=== PATIENT | female | born 1985 | race Caucasian/White ===

== ENCOUNTER 2019-12-11 03:46 | Emergency (ER) | payer BC, SELFPAY ==
[2019-12-11 03:58] VITALS: BP 131/95; PULSE 92; RESP 16; TEMP 36.1; O2SAT 99; BMI 22.8
[2019-12-11] MEDS: sodium chloride 0.9% 1,000 ML 999 ML IV ×2 (04:28→06:19)
[2019-12-11] MEDS: ondansetron 2 mg/ML SDV 2 mL 4 MG IVP (04:28)
[2019-12-11 04:30] VITALS: RESP 18; O2SAT 99
[2019-12-11] MEDS: morphine 4 mg/mL SDV 1 mL IVP (04:30)
[2019-12-11 04:42] LABS: Alanine Aminotransferase 11 U/L (0-33); Albumin Level 4.5 g/dL (3.5-5.2); Alkaline Phosphatase 44 IU/L (35-105); Anion Gap 12.6 (5-19); Aspartate Amino Transferase 17 U/L (0-32); Blood Urea Nitrogen 13 mg/dL (6-20); Calcium 9.4 mg/dL (8.5-10.5); Carbon Dioxide 26 mmol/L (22-29); Chloride 100 mmol/L (98-107); Globulin 1.9 g/dL (1.3-4.6); Glomerular Filtration Rate 81.2 mL/min (90-130); Glucose 87 mg/dL (65-115); Lipase 32 U/L (13-60); Osmolality Calculated 276 mOsm/kg (285-295); Potassium 3.6 mmol/L (3.5-5.1); Sodium 135 mmol/L (136-145); Total Bilirubin 0.3 mg/dL (0.15-1.2); Total Protein 6.4 g/dL (6.6-8.7)
[2019-12-11 04:43] LABS: Bacteria Urine 1+; Bilirubin Urine Neg (NEGATIVE); Blood Urine 3+ (Negative); Glucose Urine UA Norm (Normal); Ketones Urine Negative (Negative); Leukocyte Esterase Urine 2+ (Negative); Nitrate Urine Negative (Negative); Protein Urine 1+ (Negative); RBC Urine >100 /hpf (0-2); Squamous Epithelial Cell Urine 0-4 (0-5); Sulfosalicylic Acid Urine Trace (Negative); Urine Appearance Cloudy (CLEAR); Urine Color Yellow (Yellow); Urobilinogen Urine Norm (Negative); WBC Urine 55-80 /hpf (0-5); pH Urine 8 (5-7)
[2019-12-11 04:44] LABS: Add Urine Culture? Yes
--- NOTE | 2019-12-11 04:46 | CTR_ITS ---
PROCEDURE INFORMATION: Exam: CT Abdomen And Pelvis Without Contrast Exam date and time: 12/11/2019 5:32 AM Age: 34 years old Clinical indication: Abdominal pain; Flank; Lower; Additional info: Flank/abdominal pain TECHNIQUE: Imaging protocol: Computed tomography of the abdomen and pelvis without contrast. Radiation optimization: All CT scans at this facility use at least one of these dose optimization techniques: automated exposure control; mA and/or kV adjustment per patient size (includes targeted exams where dose is matched to clinical indication); or iterative reconstruction. COMPARISON: No relevant prior studies available. RADIATION DOSE METRICS: Total DLP (mGy-cm): 546.99 FINDINGS: Limitations: Examinations performed without intravenous contrast have limited ability to detect many conditions. Lungs: Mild patchy atelectasis at bilateral lung bases. Liver: Unremarkable. Gallbladder and bile ducts: Unremarkable. Pancreas: Unremarkable. Spleen: Unremarkable. Adrenals: Unremarkable. Kidneys and ureters: The kidneys are unremarkable. No renal stones identified. No hydronephrosis on either side. Stomach and bowel: Mild inflammatory change of the fat adjacent to the terminal ileum and cecum (series 2, image 89). Differential diagnosis includes infection and inflammatory bowel disease. Appendix: A normal-appearing appendix is seen in the right lower quadrant. Intraperitoneal space: No free intraperitoneal air identified. No free intraperitoneal fluid identified. Vasculature: No abdominal aortic aneurysm. Lymph nodes: Unremarkable. Bladder: Mild to moderate wall thickening of the bladder, suggesting cystitis. Reproductive: Metallic IUD is noted with intrauterine positioning. Bones/joints: Note is made of bilateral L4 pars interarticularis defects. Soft tissues: Unremarkable. CT/CT kidney stone 69500 IMPRESSION: 1. Mild inflammatory change of the fat adjacent to the terminal ileum and cecum. Differential diagnosis includes infection and inflammatory bowel disease. 2. Mild to moderate wall thickening of the bladder, suggesting cystitis. Radiation Dose CTDIVOL = (mGy): DLP = 546.99 (mGy-cm)
[2019-12-11 04:49] LABS: Basophils # 0.1 10^3/uL (0.0-0.1); Basophils % 0.6 %; Eosinophils # 0.2 10^3/uL (0.0-0.8); Hematocrit 41.3 % (37.0-47.0); Hemoglobin 13.8 g/dL (11.5-15.3); Lymphocytes # 1.5 10^3/uL (0.8-4.8); Mean Corpuscular HGB Conc 33.4 g/dL (30.0-36.0); Mean Corpuscular Hemoglobin 30.2 pg (28.0-34.0); Mean Corpuscular Volume 90.4 fL (81-99); Mean Platelet Volume 11.5 fL (7.4-10.4); Monocytes # 0.7 10^3/uL (0.2-0.9); Monocytes % 6.3 %; Neutrophils % 77.8 %; Nucleated Red Blood Cells % 0 %; Platelet Count 165 10^3/cmm (130-400); Red Blood Count 4.57 10^6/uL (4.1-5.3); Red Cell Distribution Width 12.7 % (12.1-15.1); White Blood Count 11.5 10^3/uL (4.0-10.0)
[2019-12-11] MEDS: cefTRIAXone 1,000 MG in sodium chloride 0.9% (plus) 50 ML 100 MG IV (05:05)
--- NOTE | 2019-12-11 05:11 | W.ED.FEMALGU ---
Documented by User: Edie Benson 12/11/19 18:26 HPI - Female Genitourinary General: Chief complaint: Urogenital-Female Stated complaint: POSS UTI Time Seen by Provider: 12/11/19 03:52 Source: patient Mode of arrival: ambulatory Limitations: no limitations History of Present Illness: HPI Narrative: Herminia is a nice 34-year-old female who comes in complaining of dysuria, urinary frequency and urgency, back pain and nausea. She is vomited several times. She denies any fever. She states her symptoms started approximately 1 AM. She felt fine when she went to sleep but otherwise denies any complaints or concerns. Associated symptoms: Reports abdominal pain and nausea; Deny headache(s) or syncope Date of Last Menstrual Period: 12/11/19 Review of Systems Const: Denies: fever(s), chills, body aches, fatigue, malaise or diaphoresis Eyes: Denies: change in vision, blurry vision, blind spots or photophobia ENMT: Denies: throat pain, odynophagia, hoarseness, swelling of lips/tongue, ear or mastoid pain, ear discharge, change in hearing or nasal discharge Card: Denies: chest pain, palpitations, irregular heart rhythm, edema, lightheadedness, syncope, pre-syncope, dyspnea on exertion or orthopnea Resp: Denies: dyspnea, productive cough, non-productive cough, wheezing, hemoptysis or chest congestion GI: Reports: abdominal pain, nausea and vomiting; Denies: hematemesis, coffee ground emesis, heartburn, diarrhea, constipation, GI cramping, hematochezia or melena : Denies: flank pain, dysuria, urinary frequency, urinary urgency or hematuria Musc: Denies: neck pain, back pain, extremity pain, extremity swelling, joint pain, joint swelling, joint redness, joint warmth or joint stiffness Skin/Breast: Denies: rash, pruritus, erythema, skin tenderness or jaundice Neuro: Denies: headache(s), numbness in extremities, weakness in extremities, sensory changes, lack of coordination, difficulty walking, dizziness, vertigo, confusion or Slurred speech present Danis/Lymph: Denies: easy bruising, easy bleeding, petechiae, purpura or enlarged lymph nodes All/Imm: Denies: urticaria, throat swelling, tongue swelling, facial swelling or acute wheezing PFS ED PFSH: Medical History No pertinent past medical history Surgical History No history of previous surgery Social History Smoking and tobacco status: current every day smoker Female Reproductive History: Date of last menstrual period: 12/11/19 Physical Exam Const: COMMON NORMALS: no acute distress, patient oriented x3, no limitations, healthy appearing and well nourished GENERAL APPEARANCE: cooperative, well kempt and well developed HENMT: COMMON NORMALS: normocephalic, atraumatic, external ears normal, EAC's normal and Normal external nose present HEAD & SCALP: normal to inspection, normocephalic and atraumatic FACE & SINUS: normal facial exam and face symmetric NOSE: Normal external nose present and Normal nares present EXTERNAL EAR: Yes external ears normal EXTERNAL AUDITORY CANAL: EAC's normal MOUTH: Normal oral and palatal mucosa present, lip normal and tongue normal Eye: COMMON NORMALS: Equal, round and reactive pupils present and conjunctivae normal GENERAL EYE: appearance normal, both eyes and all related structures ALIGNMENT: Yes alignment normal PERIORBITAL: periorbital findings normal EYELID: eyelids normal CONJUNCTIVA: Yes conjunctivae normal SCLERA: sclerae normal PUPIL: Yes Equal, round and reactive pupils present Neck/C-Spine: COMMON NORMALS: full ROM, no lymphadenopathy, supple, no meningeal signs and no JVD GENERAL: Yes normal visual inspection and Yes trachea midline Chest: COMMONS NORMALS: normal inspection of the chest and normal palpation of entire chest wall Resp: COMMON NORMALS: normal respiratory effort, No retractions and No use of accessory muscles EFFORT & INSPECTION: Yes able to speak in complete sentences and Yes symmetric chest movement AUSCULTATION: no crackles, no rales, no rhonchi and no wheezes Cardio: COMMON NORMALS: no JVD, regular rate, regular rhythm, S1 normal heart sound present and S2 normal heart sound present RATE: regular rate RHYTHM: regular rhythm HEART SOUNDS: S1 normal heart sound present, S2 normal heart sound present, no click, no gallops, no murmurs, no rubs and abnormal split S2 GI: COMMON NORMALS: Soft to palpation and No hepatosplenomegaly present PALPATION: Yes Soft to palpation, No Tenderness to palpation present (GI), No Guarding due to palpation present (GI), No Rigid due to palpation, Yes No hepatosplenomegaly present, No Hernia present, No Palpable mass present and No Pulsatile mass present : COMMON NORMALS: Yes no CVA tenderness BLADDER/KIDNEY EXAM: Yes no CVA tenderness EXTERNAL FEMALE EXAM: No Hernia present Back/Pelvis: COMMON NORMALS: no CVA tenderness, thoracic and lumbar spine normal to inspection, no thoracic nor lumbar tenderness and thoraco-lumbar ROM normal Extremity: COMMON NORMALS: normal to inspection, full ROM, capillary refill normal, no joint enlargement, no clubbing, cyanosis or edema and no calf tenderness Neuro: COMMON NORMALS: patient oriented x3, CN's II-XII intact bilaterally, moves all extremities, no focal motor deficits and no sensory deficits noted MENINGEAL SIGNS: Yes no meningeal signs SPEECH: speech normal Psych: COMMON NORMALS: mental status grossly normal, Normal thought process present, cooperative, normal affect, speech normal and activity/motor behavior normal APPEARANCE: Yes well kempt SPEECH: Yes normal speech THOUGHT PROCESS: Normal thought process present Skin: COMMON NORMALS: no rashes or lesions noted, turgor normal, no jaundice, no petechiae and no mottling GENERAL SKIN EXAM: no rashes or lesions noted and turgor normal Course Vital Signs: Vital signs: Vital Signs Temperature 97.0 F L 12/11/19 03:58 Pulse Rate 95 12/11/19 07:52 Respiratory Rate 16 12/11/19 07:52 Blood Pressure 100/67 12/11/19 07:52 Pulse Oximetry 97 12/11/19 07:52 MDM - Female MDM Narrative: Medical decision making narrative: 599 -Case turned over to Dr. Baer at change of shift. Lab Data: Labs: Lab Results 12/11/19 12/11/19 12/11/19 Range/Units 04:10 04:10 04:24 WBC 11.5 H (4.0-10.0) 10^3/ uL RBC 4.57 (4.1-5.3) 10^6/u L Hgb 13.8 (11.5-15.3) g/dL Hct 41.3 (37.0-47.0) % MCV 90.4 (81-99) fL MCH 30.2 (28.0-34.0) pg MCHC 33.4 (30.0-36.0) g/dL RDW 12.7 (12.1-15.1) % Plt Count 165 (130-400) 10^3/c mm MPV 11.5 H (7.4-10.4) fL Neut % (Auto) 77.8 % Lymph % (Auto) 13.0 % [place] % (Auto) 6.3 % Eos % (Auto) 2.0 % Baso % (Auto) 0.6 % Neut # (Auto) 9.0 H (1.8-7.7) 10^3/u L Lymph # (Auto) 1.5 (0.8-4.8) 10^3/u L [place] # (Auto) 0.7 (0.2-0.9) 10^3/u L Eos # (Auto) 0.2 (0.0-0.8) 10^3/u L Baso # (Auto) 0.1 (0.0-0.1) 10^3/u L Nucleated RBC % (a uto) 0 % Nucleated RBCs # 0.0 /100WBC Sodium (136-145) mmol/L Potassium (3.5-5.1) mmol/L Chloride (98-107) mmol/L Carbon Dioxide (22-29) mmol/L Anion Gap (5-19) BUN (6-20) mg/dL Creatinine (0.5-0.9) mg/dL GFR Calculation (90-130) mL/min Glucose (65-115) mg/dL Calculated Osmolal ity (285-295) mOsm/k g Calcium (8.5-10.5) mg/dL Total Bilirubin (0.15-1.2) mg/dL AST (0-32) U/L ALT (0-33) U/L Alkaline Phosphata se (35-105) IU/L Total Protein (6.6-8.7) g/dL Albumin (3.5-5.2) g/dL Globulin (1.3-4.6) g/dL Lipase (13-60) U/L HCG, Qual Negative (Negative) Urine Color Yellow (Yellow) Urine Appearance Cloudy (CLEAR) Urine pH 8 H (5-7) Ur Specific Gravit y 1.010 (1.005-1.030) Urine Protein 1+ H (Negative) Urine Glucose (UA) Norm (Normal) Urine Ketones Negative (Negative) Urine Blood 3+ H (Negative) Urine Nitrate Negative (Negative) Urine Bilirubin Neg (NEGATIVE) Prot Sulfosalicyli c Acd Trace (Negative) Urine Urobilinogen Norm (Negative) mg/dL Ur Leukocyte Pia ase 2+ H (Negative) Urine RBC >100 H (0-2) /hpf Urine WBC 55-80 H (0-5) /hpf Ur Squamous Epith Cells 0-4 H (0-5) Urine Bacteria 1+ H (NONE) 12/11/19 Range/Units 04:24 WBC (4.0-10.0) 10^3/ uL RBC (4.1-5.3) 10^6/u L Hgb (11.5-15.3) g/dL Hct (37.0-47.0) % MCV (81-99) fL MCH (28.0-34.0) pg MCHC (30.0-36.0) g/dL RDW (12.1-15.1) % Plt Count (130-400) 10^3/c mm MPV (7.4-10.4) fL Neut % (Auto) % Lymph % (Auto) % [place] % (Auto) % Eos % (Auto) % Baso % (Auto) % Neut # (Auto) (1.8-7.7) 10^3/u L Lymph # (Auto) (0.8-4.8) 10^3/u L [place] # (Auto) (0.2-0.9) 10^3/u L Eos # (Auto) (0.0-0.8) 10^3/u L Baso # (Auto) (0.0-0.1) 10^3/u L Nucleated RBC % (a uto) % Nucleated RBCs # /100WBC Sodium 135 L (136-145) mmol/L Potassium 3.6 (3.5-5.1) mmol/L Chloride 100 (98-107) mmol/L Carbon Dioxide 26 (22-29) mmol/L Anion Gap 12.6 (5-19) BUN 13 (6-20) mg/dL Creatinine 0.8 (0.5-0.9) mg/dL GFR Calculation 81.2 L (90-130) mL/min Glucose 87 (65-115) mg/dL Calculated Osmolal ity 276 L (285-295) mOsm/k g Calcium 9.4 (8.5-10.5) mg/dL Total Bilirubin 0.3 (0.15-1.2) mg/dL AST 17 (0-32) U/L ALT 11 (0-33) U/L Alkaline Phosphata se 44 (35-105) IU/L Total Protein 6.4 L (6.6-8.7) g/dL Albumin 4.5 (3.5-5.2) g/dL Globulin 1.9 (1.3-4.6) g/dL Lipase 32 (13-60) U/L HCG, Qual (Negative) Urine Color (Yellow) Urine Appearance (CLEAR) Urine pH (5-7) Ur Specific Gravit y (1.005-1.030) Urine Protein (Negative) Urine Glucose (UA) (Normal) Urine Ketones (Negative) Urine Blood (Negative) Urine Nitrate (Negative) Urine Bilirubin (NEGATIVE) Prot Sulfosalicyli c Acd (Negative) Urine Urobilinogen (Negative) mg/dL Ur Leukocyte Pia ase (Negative) Urine RBC (0-2) /hpf Urine WBC (0-5) /hpf Ur Squamous Epith Cells (0-5) Urine Bacteria (NONE) Discharge Plan Discharge Patient Disposition: Home, Self-Care Clinical Impression: Colitis presumed infectious, Acute hemorrhagic cystitis Condition: Stable Prescriptions: New hydrocodone-acetaminophen 5-325 mg tablet 1 tab PO Q6H PRN (Reason: pain) Qty: 20 RF: 0 ciprofloxacin HCl 500 mg tablet 500 mg PO BID Qty: 20 RF: 0 metronidazole 500 mg tablet 500 mg PO Q8H 10 Days Qty: 30 RF: 0 Discharge Orders: Discharge Order (Routine); Ordered 12/11/19 Ordered By: David Baer Activity Restrictions/Additional Instructions: Case management will call with arrangements for a follow-up with a primary care physician. Discharge Date/Time: 12/11/19 07:52 Sign Out Sign Out Data: Patient Sign Out occurred on 12/11/19 at 06:42. Patient's care was discussed, and care was transferred from Edie Benson to David Baer DO. Sign Out Comment: Case turned over to Dr. Baer at change of shift. Last updated by Edie Benson at 12/11/19 06:24 Coding Level of Care Code ED Robot Technician for Chg Fwd Exam Comprehensive Documented by User: David Baer DO 12/14/19 15:26 HPI - Female Genitourinary General: Chief complaint: Urogenital-Female Stated complaint: POSS UTI Time Seen by Provider: 12/11/19 03:52 PFSH ED PFSH: Medical History No pertinent past medical history Surgical History No history of previous surgery Social History Smoking and tobacco status: current every day smoker Course Vital Signs: Vital signs: Vital Signs Temperature 97.0 F L 12/11/19 03:58 Pulse Rate 95 12/11/19 07:52 Respiratory Rate 16 12/11/19 07:52 Blood Pressure 100/67 12/11/19 07:52 Pulse Oximetry 97 12/11/19 07:52 MDM - Female MDM Narrative: Medical decision making narrative: Patient has infectious colitis and hemorrhagic cystitis reviewed findings with the patient discharged home on antibiotics have her follow-up with her primary care doctor return if has worsening symptoms Lab Data: Labs: Lab Results 12/11/19 12/11/19 12/11/19 Range/Units 04:10 04:10 04:24 WBC 11.5 H (4.0-10.0) 10^3/ uL RBC 4.57 (4.1-5.3) 10^6/u L Hgb 13.8 (11.5-15.3) g/dL Hct 41.3 (37.0-47.0) % MCV 90.4 (81-99) fL MCH 30.2 (28.0-34.0) pg MCHC 33.4 (30.0-36.0) g/dL RDW 12.7 (12.1-15.1) % Plt Count 165 (130-400) 10^3/c mm MPV 11.5 H (7.4-10.4) fL Neut % (Auto) 77.8 % Lymph % (Auto) 13.0 % [place] % (Auto) 6.3 % Eos % (Auto) 2.0 % Baso % (Auto) 0.6 % Neut # (Auto) 9.0 H (1.8-7.7) 10^3/u L Lymph # (Auto) 1.5 (0.8-4.8) 10^3/u L [place] # (Auto) 0.7 (0.2-0.9) 10^3/u L Eos # (Auto) 0.2 (0.0-0.8) 10^3/u L Baso # (Auto) 0.1 (0.0-0.1) 10^3/u L Nucleated RBC % (a uto) 0 % Nucleated RBCs # 0.0 /100WBC Sodium (136-145) mmol/L Potassium (3.5-5.1) mmol/L Chloride (98-107) mmol/L Carbon Dioxide (22-29) mmol/L Anion Gap (5-19) BUN (6-20) mg/dL Creatinine (0.5-0.9) mg/dL GFR Calculation (90-130) mL/min Glucose (65-115) mg/dL Calculated Osmolal ity (285-295) mOsm/k g Calcium (8.5-10.5) mg/dL Total Bilirubin (0.15-1.2) mg/dL AST (0-32) U/L ALT (0-33) U/L Alkaline Phosphata se (35-105) IU/L Total Protein (6.6-8.7) g/dL Albumin (3.5-5.2) g/dL Globulin (1.3-4.6) g/dL Lipase (13-60) U/L HCG, Qual Negative (Negative) Urine Color Yellow (Yellow) Urine Appearance Cloudy (CLEAR) Urine pH 8 H (5-7) Ur Specific Gravit y 1.010 (1.005-1.030) Urine Protein 1+ H (Negative) Urine Glucose (UA) Norm (Normal) Urine Ketones Negative (Negative) Urine Blood 3+ H (Negative) Urine Nitrate Negative (Negative) Urine Bilirubin Neg (NEGATIVE) Prot Sulfosalicyli c Acd Trace (Negative) Urine Urobilinogen Norm (Negative) mg/dL Ur Leukocyte Pia ase 2+ H (Negative) Urine RBC >100 H (0-2) /hpf Urine WBC 55-80 H (0-5) /hpf Ur Squamous Epith Cells 0-4 H (0-5) Urine Bacteria 1+ H (NONE) 12/11/19 Range/Units 04:24 WBC (4.0-10.0) 10^3/ uL RBC (4.1-5.3) 10^6/u L Hgb (11.5-15.3) g/dL Hct (37.0-47.0) % MCV (81-99) fL MCH (28.0-34.0) pg MCHC (30.0-36.0) g/dL RDW (12.1-15.1) % Plt Count (130-400) 10^3/c mm MPV (7.4-10.4) fL Neut % (Auto) % Lymph % (Auto) % [place] % (Auto) % Eos % (Auto) % Baso % (Auto) % Neut # (Auto) (1.8-7.7) 10^3/u L Lymph # (Auto) (0.8-4.8) 10^3/u L [place] # (Auto) (0.2-0.9) 10^3/u L Eos # (Auto) (0.0-0.8) 10^3/u L Baso # (Auto) (0.0-0.1) 10^3/u L Nucleated RBC % (a uto) % Nucleated RBCs # /100WBC Sodium 135 L (136-145) mmol/L Potassium 3.6 (3.5-5.1) mmol/L Chloride 100 (98-107) mmol/L Carbon Dioxide 26 (22-29) mmol/L Anion Gap 12.6 (5-19) BUN 13 (6-20) mg/dL Creatinine 0.8 (0.5-0.9) mg/dL GFR Calculation 81.2 L (90-130) mL/min Glucose 87 (65-115) mg/dL Calculated Osmolal ity 276 L (285-295) mOsm/k g Calcium 9.4 (8.5-10.5) mg/dL Total Bilirubin 0.3 (0.15-1.2) mg/dL AST 17 (0-32) U/L ALT 11 (0-33) U/L Alkaline Phosphata se 44 (35-105) IU/L Total Protein 6.4 L (6.6-8.7) g/dL Albumin 4.5 (3.5-5.2) g/dL Globulin 1.9 (1.3-4.6) g/dL Lipase 32 (13-60) U/L HCG, Qual (Negative) Urine Color (Yellow) Urine Appearance (CLEAR) Urine pH (5-7) Ur Specific Gravit y (1.005-1.030) Urine Protein (Negative) Urine Glucose (UA) (Normal) Urine Ketones (Negative) Urine Blood (Negative) Urine Nitrate (Negative) Urine Bilirubin (NEGATIVE) Prot Sulfosalicyli c Acd (Negative) Urine Urobilinogen (Negative) mg/dL Ur Leukocyte Pia ase (Negative) Urine RBC (0-2) /hpf Urine WBC (0-5) /hpf Ur Squamous Epith Cells (0-5) Urine Bacteria (NONE) Discharge Plan Discharge Patient Disposition: Home, Self-Care Clinical Impression: Colitis presumed infectious, Acute hemorrhagic cystitis Condition: Stable Prescriptions: New hydrocodone-acetaminophen 5-325 mg tablet 1 tab PO Q6H PRN (Reason: pain) Qty: 20 RF: 0 ciprofloxacin HCl 500 mg tablet 500 mg PO BID Qty: 20 RF: 0 metronidazole 500 mg tablet 500 mg PO Q8H 10 Days Qty: 30 RF: 0 Discharge Orders: Discharge Order (Routine); Ordered 12/11/19 Ordered By: David Baer Activity Restrictions/Additional Instructions: Case management will call with arrangements for a follow-up with a primary care physician. Discharge Date/Time: 12/11/19 07:52 Sign Out Sign Out Data: Patient Sign Out occurred on 12/11/19 at 06:42. Patient's care was discussed, and care was transferred from Edie Benson to David L Horstman, DO. Sign Out Comment: Case turned over to Dr. Baer at change of shift. Last updated by Edie Benson at 12/11/19 06:24 Coding Level of Care Code ED Robot Technician for Chg Fwd Exam Comprehensive
[2019-12-11 06:20] VITALS: BP 109/84; PULSE 82; RESP 18; O2SAT 98
--- NOTE | 2019-12-11 07:00 | PC.NURSE ---
Report received from QUAN Zuniga.
[2019-12-11 07:24] VITALS: BP 90/57; PULSE 83; RESP 16; O2SAT 99
[2019-12-11 07:52] VITALS: BP 100/67; PULSE 95; RESP 16; O2SAT 97
[2019-12-11 12:45] LABS: HCG Qualitative Urine. Negative (Negative)
--- NOTE | 2019-12-11 13:42 | DCPLANNER ---
microbiology laboratory manager had message to speak with patient about getting established with a primary care physician. microbiology laboratory manager called patient, unable to speak with patient at this time, a voicemail was left for patient to return family preservation caseworker phone call.
== END 2019-12-11 07:52 | disposition home or self-care (01) ==
PROVIDERS: Emergency Medicine; Emergency Provider Family Medicine
DX: A09 Infectious gastroenteritis and colitis, unspecified (principal); N30.01 Acute cystitis with hematuria; F17.210 Nicotine dependence, cigarettes, uncomplicated
CPT/HCPCS: 12345; 36415; 74176; 80053; 81001; 81025; 83690; 85025; 87086; 96360; 96361; 96365; 96366; 96375; 99284; J0696; J2270; J2405; J7030

== ENCOUNTER 2020-10-14 12:27 | Emergency (ER) | payer BC, SELFPAY ==
[2020-10-14] VITALS (8 sets, daily range): BP systolic 100–124; BP diastolic 66–84; PULSE 65–91; RESP 12–24; TEMP 36.6; O2SAT 96–100; BMI 23.8
--- NOTE | 2020-10-14 14:06 | XR_ITS ---
WS: [id number] Portable AP upright chest, 10/14/2020 Clinical Data: cp Comparison: Portable chest, 07/26/2018. Findings: No nodules, masses or effusions are seen. The heart is normal. The pulmonary vascularity is not increased. No pneumonia or pneumothorax is seen. XR/XR chest 1V portable [id number] Impression: Negative chest.
--- NOTE | 2020-10-14 14:06 | ECG_ITS ---
[facility] Test Date: 2020-10-14 Pat Name: Herminia Keating Department: Room: Gender: Female Billing And Accounting Staff Assistant: : 1985 Requested By: Andrews Au Order Number: [id number] Reading MD: KEIRY PADILLA Measurements Intervals [place] Rate: 69 P: 67 MN: 166 QRS: 28 QRSD: 85 T: 43 QT: 406 QTc: 436 Interpretive Statements SINUS RHYTHM Compared to ECG 07/26/2018 12:32:04 No significant changes Electronically Signed On 10-14-2020 19:22:37 CDT by KEIRY PADILLA [id number]
[2020-10-14] MEDS: albuterol 8 gm MDI 1 PUFF INHALATION (14:40)
[2020-10-14] MEDS: sodium chloride 0.9% 1,000 ML 999 ML IV (14:47)
[2020-10-14] MEDS: diphenhydrAMINE 50 mg/mL SDV 1mL IVP (14:48)
[2020-10-14 15:28] LABS: Alanine Aminotransferase 12 U/L (0-33); Albumin Level 4.6 g/dL (3.5-5.2); Alkaline Phosphatase 41 IU/L (35-105); Anion Gap 15.6 (5-19); Aspartate Amino Transferase 15 U/L (0-32); Blood Urea Nitrogen 9 mg/dL (6-20); Calcium 8.7 mg/dL (8.5-10.5); Carbon Dioxide 23 mmol/L (22-29); Chloride 104 mmol/L (98-107); Globulin 2.3 g/dL (1.3-4.6); Glomerular Filtration Rate 94.2 mL/min (90-130); Glucose 68 mg/dL (65-115); Osmolality Calculated 285 mOsm/kg (285-295); Potassium 3.6 mmol/L (3.5-5.1); Sodium 139 mmol/L (136-145); Total Bilirubin 0.4 mg/dL (0.15-1.2); Total Protein 6.9 g/dL (6.6-8.7)
[2020-10-14 15:29] LABS: Troponin(5th) Baseline 10 ng/L (0-10)
[2020-10-14 15:48] LABS: Basophils # 0.1 10^3/uL (0.0-0.1); Eosinophils # 0.2 10^3/uL (0.0-0.8); Eosinophils % 2.9 %; Hematocrit 44.1 % (37.0-47.0); Lymphocytes # 1.9 10^3/uL (0.8-4.8); Lymphocytes % 30.9 %; Mean Corpuscular Hemoglobin 31.8 pg (28.0-34.0); Mean Corpuscular Volume 93.6 fL (81-99); Mean Platelet Volume 11.9 fL (7.4-10.4); Monocytes # 0.4 10^3/uL (0.2-0.9); Monocytes % 6.4 %; Neutrophils # 3.67 10^3/uL (1.8-7.7); Neutrophils % 58.5 %; Nucleated Red Blood Cells % 0 %; Platelet Count 172 10^3/cmm (130-400); Red Blood Count 4.71 10^6/uL (4.1-5.3); Red Cell Distribution Width 11.9 % (12.1-15.1); White Blood Count 6.3 10^3/uL (4.0-10.0)
--- NOTE | 2020-10-14 16:06 | ECG_ITS ---
[facility] Test Date: 2020-10-14 Pat Name: Herminia Keating Department: Room: Gender: Female Nurse Reviewer: : 1985 Requested By: Andrews Au Order Number: [id number] Tate MD: KEIRY PADILLA Measurements Intervals [place] Rate: 65 P: 71 WI: 175 QRS: 66 QRSD: 83 T: 60 QT: 428 QTc: 445 Interpretive Statements SINUS RHYTHM Compared to ECG 10/14/2020 12:45:46 No significant changes Electronically Signed On 10-14-2020 19:23:52 CDT by KEIRY PADILLA [id number]
--- NOTE | 2020-10-14 17:43 | ED_ITS ---
HPI - Chest Pain General: Chief Complaint: Chest Pain Stated Complaint: chest discomfort since yesterday Time Seen by Provider: 10/14/20 14:02 History of Present Illness: HPI narrative: The patient is a 35-year-old female who comes to the ER complaining of a tightness in her chest. She says she has seasonal allergies and she has been taking Claritin to help her with this. Several years ago she had an episode where her throat swelled up and she could not breathe and said it started like this. She has no identified allergies other than seasonal allergies and sulfa drugs. Also complains of mild shortness of breath associated with the tightness in her chest. No cardiac history. Previously healthy 35-year-old female Timing of current episode: constant Prior episodes: Yes Onset: during rest and during exertion Pain location: substernal Pain radiation: none Severity: mild Quality: tightness Associated symptoms: Reports no associated symptoms and dyspnea; Deny abdominal pain or palpitations Review of Systems General: Reports: 10 or more systems reviewed and unremarkable except in HPI and below Const: Denies: fatigue Eyes: Denies: change in vision, blurry vision or eye redness ENMT: Denies: throat pain, swelling of lips/tongue, ear or mastoid pain or nasal congestion Card: Reports: other (Chest tightness); Denies: palpitations, irregular heart rhythm, edema, dyspnea on exertion or orthopnea Resp: Reports: dyspnea; Denies: productive cough or non-productive cough GI: Denies: abdominal pain, diarrhea or GI cramping : Denies: flank pain, difficulty voiding, urinary frequency or urinary urgency Musc: Denies: neck pain, back pain, extremity pain, joint pain, joint redness, limited range of motion or muscle weakness Skin/Breast: Denies: rash, pruritus, erythema, skin pain or skin tenderness Neuro: Denies: headache(s), numbness in extremities, weakness in extremities, sensory changes, difficulty walking, dizziness, confusion or Slurred speech present Psych: Denies: anxiety or depression Endo: Denies: polyuria All/Imm: Denies: urticaria, throat swelling or tongue swelling PFS ED PFSH: Medical History (Updated 10/14/20 @ 17:43 by Andrews Au MD) No pertinent past medical history Surgical History No history of previous surgery Social History (Updated 12/16/19 @ 11:54 by Lola Dalal LPN) Smoking and tobacco status: former smoker Female Reproductive History: Date of last menstrual period: 12/11/19 Physical Exam Const: COMMON NORMALS: no acute distress, average body habitus, patient oriented x3, no limitations, healthy appearing, alert and well nourished GENERAL APPEARANCE: cooperative, comfortable, well kempt and well developed ORIENTATION/CONSCIOUSNESS: Yes awake, Yes oriented to person, Yes oriented to place and Yes oriented to time HENMT: COMMON NORMALS: normocephalic, external ears normal and Normal external nose present HEAD & SCALP: normal to inspection and normocephalic NOSE: Normal external nose present EXTERNAL EAR: Yes external ears normal MOUTH: Normal oral and palatal mucosa present THROAT: posterior oropharynx normal Eye: COMMON NORMALS: Equal, round and reactive pupils present and EOMs intact bilaterally GENERAL EYE: appearance normal, both eyes and all related structures PUPIL: Yes Equal, round and reactive pupils present Neck/C-Spine: COMMON NORMALS: full ROM, no lymphadenopathy, no meningeal signs and no JVD GENERAL: Yes normal visual inspection Lymph: LYMPHATIC: no lymphadenopathy noted Chest: COMMONS NORMALS: normal inspection of the chest and normal palpation of entire chest wall Resp: COMMON NORMALS: normal respiratory effort, No retractions, No use of accessory muscles, clear to auscultation bilaterally and percussion normal EFFORT & INSPECTION: Yes able to speak in complete sentences AUSCULTATION: clear to auscultation bilaterally PERCUSSION: percussion normal Cardio: COMMON NORMALS: no JVD, regular rate, regular rhythm, S1 normal heart sound present, S2 normal heart sound present and Peripheral pulses 2+ throughout RATE: regular rate RHYTHM: regular rhythm HEART SOUNDS: S1 normal heart sound present and S2 normal heart sound present PERIPHERAL PULSES: Peripheral pulses 2+ throughout GI: COMMON NORMALS: Normal to inspection, nondistended, normoactive bowel sounds present, Soft to palpation, non-tender and no masses INSPECTION: Yes normal to inspection PALPATION: Yes Soft to palpation : COMMON NORMALS: Yes no CVA tenderness BLADDER/KIDNEY EXAM: Yes no CVA tenderness Back/Pelvis: COMMON NORMALS: no CVA tenderness, thoracic and lumbar spine normal to inspection, no thoracic nor lumbar tenderness and thoraco-lumbar ROM normal Extremity: COMMON NORMALS: normal to inspection, full ROM, capillary refill normal, no joint enlargement and no pedal edema GENERAL: Yes normal exam except as noted Neuro: COMMON NORMALS: patient oriented x3, CN's II-XII intact bilaterally, moves all extremities, no focal motor deficits, no sensory deficits noted and gait normal SENSORIUM/ORIENTATION: Yes alert, Yes oriented to person, Yes oriented to place and Yes oriented to time MENINGEAL SIGNS: Yes no meningeal signs Psych: COMMON NORMALS: mental status grossly normal, Normal thought process present, cooperative, normal affect and speech normal APPEARANCE: Yes well kempt ATTITUDE: Yes calm SPEECH: Yes normal speech THOUGHT PROCESS: Normal thought process present Skin: COMMON NORMALS: no rashes or lesions noted GENERAL SKIN EXAM: no rashes or lesions noted Course Vital Signs: Vital signs: Vital Signs Temperature 97.9 F 10/14/20 12:47 Pulse Rate 68 10/14/20 17:11 Respiratory Rate 12 10/14/20 17:11 Blood Pressure 100/71 10/14/20 17:11 Pulse Oximetry 99 10/14/20 17:11 MDM - Chest Pain MDM Narrative: Medical decision making narrative: Patient came to the ER with chest tightness. She has seasonal allergies and has had an episode several years ago that started like this then progressed to throat closing off and not being able to breathe related to an allergic reaction. She was given Benadryl, Solu-Medrol, albuterol with moderate improvement of her symptoms. She says she still had mild symptoms and prefers discharge. I offered her a CT angiogram to check for blood clots in her lungs and she declined saying she has to go pepper picker her kids from daycare. I offered her to return at any time to the ER for further evaluation or if her symptoms worsen. She understands and will do so. Recommended follow-up with primary care in a couple days to monitor improvement of her symptoms and ER with worsening symptoms. Lab Data: Labs: Lab Results 10/14/20 10/14/20 10/14/20 Range/Units 14:50 14:50 14:50 WBC 6.3 (4.0-10.0) 10^3/ uL RBC 4.71 (4.1-5.3) 10^6/u L Hgb 15.0 (11.5-15.3) g/dL Hct 44.1 (37.0-47.0) % MCV 93.6 (81-99) fL MCH 31.8 (28.0-34.0) pg MCHC 34.0 (30.0-36.0) g/dL RDW 11.9 L (12.1-15.1) % Plt Count 172 (130-400) 10^3/c mm MPV 11.9 H (7.4-10.4) fL Neut % (Auto) 58.5 % Lymph % (Auto) 30.9 % Todd % (Auto) 6.4 % Eos % (Auto) 2.9 % Baso % (Auto) 1.0 % Neut # (Auto) 3.67 (1.8-7.7) 10^3/u L Lymph # (Auto) 1.9 (0.8-4.8) 10^3/u L Todd # (Auto) 0.4 (0.2-0.9) 10^3/u L Eos # (Auto) 0.2 (0.0-0.8) 10^3/u L Baso # (Auto) 0.1 (0.0-0.1) 10^3/u L Nucleated RBC % (a uto) 0 % Nucleated RBCs # 0.0 /100WBC Sodium 139 (136-145) mmol/L Potassium 3.6 (3.5-5.1) mmol/L Chloride 104 (98-107) mmol/L Carbon Dioxide 23 (22-29) mmol/L Anion Gap 15.6 (5-19) BUN 9 (6-20) mg/dL Creatinine 0.7 (0.5-0.9) mg/dL GFR Calculation 94.2 (90-130) mL/min Glucose 68 (65-115) mg/dL Calculated Osmolal ity 285 (285-295) mOsm/k g Calcium 8.7 (8.5-10.5) mg/dL Total Bilirubin 0.4 (0.15-1.2) mg/dL AST 15 (0-32) U/L ALT 12 (0-33) U/L Alkaline Phosphata se 41 (35-105) IU/L Troponin T Baselin e 10 (0-10) ng/L Troponin T 120 [place] (0-10) ng/L Delta Troponin T (0-10) ABS# Total Protein 6.9 (6.6-8.7) g/dL Albumin 4.6 (3.5-5.2) g/dL Globulin 2.3 (1.3-4.6) g/dL 10/14/20 Range/Units 17:08 WBC (4.0-10.0) 10^3/ uL RBC (4.1-5.3) 10^6/u L Hgb (11.5-15.3) g/dL Hct (37.0-47.0) % MCV (81-99) fL MCH (28.0-34.0) pg MCHC (30.0-36.0) g/dL RDW (12.1-15.1) % Plt Count (130-400) 10^3/c mm MPV (7.4-10.4) fL Neut % (Auto) % Lymph % (Auto) % Todd % (Auto) % Eos % (Auto) % Baso % (Auto) % Neut # (Auto) (1.8-7.7) 10^3/u L Lymph # (Auto) (0.8-4.8) 10^3/u L Todd # (Auto) (0.2-0.9) 10^3/u L Eos # (Auto) (0.0-0.8) 10^3/u L Baso # (Auto) (0.0-0.1) 10^3/u L Nucleated RBC % (a uto) % Nucleated RBCs # /100WBC Sodium (136-145) mmol/L Potassium (3.5-5.1) mmol/L Chloride (98-107) mmol/L Carbon Dioxide (22-29) mmol/L Anion Gap (5-19) BUN (6-20) mg/dL Creatinine (0.5-0.9) mg/dL GFR Calculation (90-130) mL/min Glucose (65-115) mg/dL Calculated Osmolal ity (285-295) mOsm/k g Calcium (8.5-10.5) mg/dL Total Bilirubin (0.15-1.2) mg/dL AST (0-32) U/L ALT (0-33) U/L Alkaline Phosphata se (35-105) IU/L Troponin T Baselin e (0-10) ng/L Troponin T 120 [place] 10.50 H (0-10) ng/L Delta Troponin T 0.50 (0-10) ABS# Total Protein (6.6-8.7) g/dL Albumin (3.5-5.2) g/dL Globulin (1.3-4.6) g/dL Discharge Plan Discharge Patient Disposition: Home Clinical Impression: Allergic reaction Condition: Stable Prescriptions: New EpiPen 2-Bimal 0.3 mg/0.3 mL auto-injector 0.3 mg IM Q10M PRN (Reason: hypersensitivity reaction) Qty: 2 RF: 0 Benadryl 25 mg capsule 25 mg PO Q4H PRN (Reason: allergic reaction) Qty: 30 RF: 0 albuterol sulfate 90 mcg/actuation HFA aerosol inhaler 2 inh inhalation Q6H PRN (Reason: shortness of breath or wheezing) Qty: 8.5 RF: 0 Medrol (Bimal) 4 mg tablets,dose pack See Rx Instructions .ROUTE .COMPLEX Qty: 21 RF: 0 No Action Mirena 20 mcg/24 hours (6 yrs) 52 mg Intrauterine Device See Rx Instructions .ROUTE .COMPLEX RF: 0 Zyrtec 10 mg Tablet 10 mg PO PRN RF: 0 Discharge Orders: Discharge ED (Routine); Ordered 10/14/20 Ordered By: Andrews Au Discharge Diet: Advance as tolerated Discharge Activity: Resume usual activity Patient Instructions: Allergic Reaction, Opioid Safety Activity Restrictions/Additional Instructions: You are likely having an allergic reaction. We have given you Benadryl, steroids, albuterol and you have improved moderately. Please fill the prescriptions and take as directed. Return to the ER at anytime with worsening symptoms. Follow-up with a primary care physician in 2 to 3 days to monitor improvement of your symptoms. Coding Level of Care Code ED Diesel Truck Mechanic for Barbara Lay
[2020-10-14 17:46] LABS: D Dimer <= 0.27 ug/mIFEU (0-0.59)
== END 2020-10-14 18:05 | disposition home or self-care (01) ==
PROVIDERS: Emergency Provider Family Medicine
DX: T78.40XA Allergy, unspecified, initial encounter (principal); Z87.891 Personal history of nicotine dependence
CPT/HCPCS: 36415; 71045; 80053; 84484; 85025; 85378; 93005; 94640; 96361; 96374; 96375; 99284; J1200; J2930; J3535; J7030

== ENCOUNTER → 2020-12-01 14:18 | Outpatient (BNVA) | payer BC, SELFPAY | PROVIDERS: Visit Provider Nurse Practitioner Women's Health | DX: T83.32XA Displacement of intrauterine contraceptive device, initial encounter (principal); Z30.432 Encounter for removal of intrauterine contraceptive device | CPT/HCPCS: 76857 ==

== ENCOUNTER 2020-12-19 03:55 | Emergency (ER) | payer BC, SELFPAY ==
[2020-12-19 04:00] VITALS: PULSE 117; RESP 20; TEMP 36.8; O2SAT 97; BMI 21.9
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
[2020-12-19] MEDS: oxyCODONE-APAP 5-325 mg Tablet 2 TAB PO (04:37)
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
[2020-12-19 06:26] VITALS: BP 111/75; PULSE 104; RESP 17; O2SAT 104
== END 2020-12-19 07:10 | disposition home or self-care (01) ==
PROVIDERS: Emergency Provider Emergency Medicine
DX: S06.0X0A Concussion without loss of consciousness, initial encounter (principal); S00.83XA Contusion of other part of head, initial encounter; S70.11XA Contusion of right thigh, initial encounter; S50.12XA Contusion of left forearm, initial encounter; Y04.2XXA Assault by strike against or bumped into by another person, initial encounter
CPT/HCPCS: 70450; 70486; 72125; 99283

== ENCOUNTER → 2021-01-15 15:10 | Outpatient (BNVA) | payer BC, SELFPAY | PROVIDERS: Visit Provider Nurse Practitioner Women's Health | DX: Z01.419 Encounter for gynecological examination (general) (routine) without abnormal findings (principal) | CPT/HCPCS: 88175 ==

== ENCOUNTER 2021-07-22 17:35 | Emergency (ER) | payer BC, MEDICAID, SELFPAY ==
[2021-07-22] VITALS (8 sets, daily range): BP systolic 102–120; BP diastolic 56–74; PULSE 88–110; RESP 17–30; TEMP 36.5–36.7; O2SAT 99–100
[2021-07-22 18:35] LABS: Basophils # 0.1 10^3/uL (0.0-0.1); Basophils % 0.5 %; Eosinophils # 0.2 10^3/uL (0.0-0.8); Eosinophils % 1.8 %; Hematocrit 32.1 % (37.0-47.0); Hemoglobin 11.5 g/dL (11.5-15.3); Lymphocytes % 8.6 %; Mean Corpuscular HGB Conc 35.8 g/dL (30.0-36.0); Mean Corpuscular Hemoglobin 32.5 pg (28.0-34.0); Mean Corpuscular Volume 90.7 fl (81-99); Mean Platelet Volume 10.8 fL (7.4-10.4); Monocytes # 1.1 10^3/uL (0.2-0.9); Monocytes % 9.5 %; Neutrophils # 8.85 10^3/uL (1.8-7.7); Neutrophils % 77.7 %; Nucleated Red Blood Cells % 0 %; Platelet Count 164 10^3/cmm (130-400); Red Blood Count 3.54 10^6/uL (4.1-5.3); Red Cell Distribution Width 12.9 % (12.1-15.1); White Blood Count 11.4 10^3/uL (4.0-10.0)
--- NOTE | 2021-07-22 18:38 | W.ED.PREGNAN ---
HPI - General: Chief complaint: OB/Uterine Contractions Stated complaint: vaginal bleeding Time Seen by Provider: 07/22/21 17:59 Source: patient Mode of arrival: ambulatory Limitations: no limitations History of Present Illness: 36-year-old female who is a G7, P6 roughly 18 to 20 weeks states she been having some bleeding over the last 2 days she actually delivered a stillbirth while in triage states that she is got lower abdominal cramping she rates a 6 out of 10 still does have vaginal bleeding as well. Fetus here is not reliable. She denies any issues with her previous 6 pregnancies. She believes her blood type is O+. Date of Last Menstrual Period: 12/11/19 Associated symptoms: Deny abdominal pain, dysuria, headache(s), nausea or vomiting Review of Systems Const: Denies: fever(s), chills, body aches or change in appetite Eyes: Denies: blurry vision or eye discomfort ENMT: Denies: throat pain or dental pain Card: Denies: chest pain Resp: Denies: dyspnea GI: Denies: abdominal pain, nausea, vomiting or diarrhea : Reports: vaginal bleeding; Denies: dysuria Musc: Denies: neck pain or back pain Skin/Breast: Denies: rash Neuro: Denies: headache(s) Psych: Denies: depression Danis/Lymph: Denies: easy bruising All/Imm: Denies: urticaria PFSH ED PFSH: Medical History No pertinent past medical history neghx: htn,dm,thyroid,dvt/pe PCP: none Surgical History Hx of dilation and curettage [id number]: Performed in [place], [place] due to miscarriage. Family History Grandfather Hypertension Paternal Diabetes Paternal Heart disease Paternal Stroke Paternal Grandmother Uterine cancer Parternal--dx age 30's Ovarian cancer Paternal--dx age 30's Denies family history of Colon cancer Hypercholesteremia Breast cancer Thyroid disease Female Reproductive History: Date of last menstrual period: 12/11/19 Physical Exam Const: COMMON NORMALS: no acute distress, patient oriented x3 and healthy appearing HENMT: COMMON NORMALS: normocephalic and atraumatic HEAD & SCALP: normocephalic and atraumatic Eye: COMMON NORMALS: Equal, round and reactive pupils present and EOMs intact bilaterally PUPIL: Yes Equal, round and reactive pupils present Neck/C-Spine: COMMON NORMALS: full ROM and supple Chest: COMMONS NORMALS: normal inspection of the chest and normal palpation of entire chest wall Resp: COMMON NORMALS: normal respiratory effort, No retractions, No use of accessory muscles and clear to auscultation bilaterally AUSCULTATION: clear to auscultation bilaterally Cardio: COMMON NORMALS: regular rate, regular rhythm and No murmurs present (Cardio) RATE: regular rate RHYTHM: regular rhythm GI: COMMON NORMALS: Normal to inspection, nondistended, normoactive bowel sounds present, Soft to palpation, non-tender and no masses PALPATION: Yes Soft to palpation Back/Pelvis: OTHER: Large amount of bleeding in the vaginal vault was unable to evacuate patient's placenta no clot at the cervical os. Extremity: COMMON NORMALS: normal to inspection and full ROM Neuro: COMMON NORMALS: patient oriented x3, moves all extremities and no focal motor deficits Psych: COMMON NORMALS: mental status grossly normal, Normal thought process present and cooperative THOUGHT PROCESS: Normal thought process present Skin: COMMON NORMALS: no rashes or lesions noted and no wounds GENERAL SKIN EXAM: no rashes or lesions noted Course Reevaluation(s): Reevaluation #1: Pelvic exam by myself showed dilated cervix placenta still attached in the uterus I spoke to OB Dr. Matute who is came and seen the patient as well attempting to evacuate her placenta patient did have a slight drop in her hemoglobin as well will transfuse her 1 unit and continue to monitor to see if she is able to pass the products. Time: 19:00 Vital Signs: Vital signs: Vital Signs Temperature 98 F 07/22/21 22:13 Pulse Rate 103 H 07/22/21 21:13 Respiratory Rate 17 07/22/21 22:27 Blood Pressure 107/68 07/22/21 22:13 Pulse Oximetry 99 07/22/21 22:13 MDM - OB/Uterine Contractions Medical Decision Making Patient presents here with a miscarriage patient has been seen by Dr. Bills in the ER as well on a repeat vaginal exam she had passed her placenta no longer has any bleeding feels much improved did transfuse her 1 unit she is well-appearing here stable for discharge she is to follow-up with OB in 2 to 4 days return if worsening she understands agrees to plan. Lab Data : 07/22/21 19:30 Laboratory Results WBC 11.4 10^3/uL (4.0-10.0) H 07/22/21 18:19 RBC 3.54 10^6/uL (4.1-5.3) L 07/22/21 18:19 Hgb 8.8 g/dL (11.5-15.3) L 07/22/21 19:30 Hct 24.9 % (37.0-47.0) L 07/22/21 19:30 MCV 90.7 fl (81-99) 07/22/21 18:19 MCH 32.5 pg (28.0-34.0) 07/22/21 18:19 MCHC 35.8 g/dL (30.0-36.0) 07/22/21 18:19 RDW 12.9 % (12.1-15.1) 07/22/21 18:19 Plt Count 164 10^3/cmm (130-400) 07/22/21 18:19 MPV 10.8 fL (7.4-10.4) H 07/22/21 18:19 Neut % (Auto) 77.7 % 07/22/21 18:19 Lymph % (Auto) 8.6 % 07/22/21 18:19 Geary % (Auto) 9.5 % 07/22/21 18:19 Eos % (Auto) 1.8 % 07/22/21 18:19 Baso % (Auto) 0.5 % 07/22/21 18:19 Neut # (Auto) 8.85 10^3/uL (1.8-7.7) H 07/22/21 18:19 Lymph # (Auto) 1.0 10^3/uL (0.8-4.8) 07/22/21 18:19 Geary # (Auto) 1.1 10^3/uL (0.2-0.9) H 07/22/21 18:19 Eos # (Auto) 0.2 10^3/uL (0.0-0.8) 07/22/21 18:19 Baso # (Auto) 0.1 10^3/uL (0.0-0.1) 07/22/21 18:19 Nucleated RBC % (auto) 0 % 07/22/21 18:19 Nucleated RBCs # 0.0 /100WBC 07/22/21 18:19 Blood Type O Positive 07/22/21 18:19 Rho(D) Type Positive 07/22/21 18:19 Antibody Screen Negative 07/22/21 18:19 Crossmatch See Detail 07/22/21 18:19 Discharge Plan Discharge Patient Disposition: Home Clinical Impression: Miscarriage Condition: Stable Prescriptions: No Action norethindrone (contraceptive) 0.35 mg tablet 0.35 mg PO DAILY Qty: 84 1RF Zyrtec 10 mg Tablet 10 mg PO PRN 0RF EpiPen 2-Bimal 0.3 mg/0.3 mL auto-injector 0.3 mg IM Q10M PRN (Reason: hypersensitivity reaction) Qty: 2 0RF Rx Instructions: for 2 doses Benadryl 25 mg capsule 25 mg PO Q4H PRN (Reason: allergic reaction) Qty: 30 0RF albuterol sulfate 90 mcg/actuation HFA aerosol inhaler 2 inh inhalation Q6H PRN (Reason: shortness of breath or wheezing) Qty: 8.5 0RF Discharge Orders: Discharge ED (Routine); Ordered 07/22/21 Ordered By: Kayleigh Madison Referrals: Efrain Phillips MD [Physician] - 1-3 days Discharge Diet: Advance as tolerated Discharge Activity: Resume usual activity Patient Instructions: Miscarriage (ED) Coding Level of Care Code ED Branch Service Representative for Chg Fwd Exam Comprehensive
[2021-07-22] MEDS: morphine 4 mg/mL SDV 1 mL IVP (18:57)
[2021-07-22] MEDS: ondansetron 2 mg/ML SDV 2 mL 4 MG IVP (18:57)
--- NOTE | 2021-07-22 19:16 | PC.NURSE ---
After talking with pt, pt stated she wanted to have her pants and underwear thrown in the trash.
[2021-07-22] MEDS: fentaNYL 50 mcg/mL INJ 2mL IVP (19:20)
[2021-07-22] MEDS: miSOPROStol 200 mcg Tablet 800 MCG PR (19:30)
[2021-07-22 19:40] LABS: Hematocrit 24.9 % (37.0-47.0); Hemoglobin 8.8 g/dL (11.5-15.3)
[2021-07-22] MEDS: oxytocin 30 UNIT/500 ML BAG IV (19:45)
--- NOTE | 2021-07-22 19:45 | PM.CONSULT ---
Providers/Reason For Consult Consulting Physician/Specialty*: legal services professional Reason for Consult*: 18 week stillborn delivery in ER Requesting Physician: Dr. Madison Attending Physician: Dr Helen Matute History of Present Illness History of Present Illness Herminia Keating is a 36 year old ab 1 female who presented to the ER with heavy vaginal bleeding. She had a positive test in April, but then started bleeding and thought she had a false positive. she had a normal period in May and a normal period at the beginning of june. She was at work today and started having some back pain and pelvic cramping. Then, she started bleeding. She drove herself to the hospital where she delivered a fetus that was approximately 18 weeks. (weight 280 grams) She didn't deliver the placenta with the fetus and the ER doctor pulled the cord off trying to deliver the placenta. She was having significant bleeding and I was called in to deliver the placenta. Review of Systems General: Reports: 10 or more systems reviewed and unremarkable except in HPI and below Medications/Allergies Home Medications Medication Instructions Recorded Confirmed Last Taken Type albuterol sulfate 90 mcg/actuation 2 inh INHALATION Q6H PRN #8.5 g 10/14/20 01/15/21 Unknown Rx aerosol inhaler cetirizine 10 mg tablet (Zyrtec) 10 mg PO PRN 10/14/20 01/15/21 10/14/20 07:00 History diphenhydramine HCl 25 mg capsule 25 mg PO Q4H PRN #30 cap 10/14/20 01/15/21 Unknown Rx (Benadryl) epinephrine 0.3 mg/0.3 mL 0.3 mg (0.3 mL) IM Q10M PRN #2 ea 10/14/20 01/15/21 Unknown Rx injection, auto-injector (EpiPen 2-Bimal) norethindrone (contraceptive) 0.35 0.35 mg PO DAILY #84 tab 12/04/20 01/15/21 Unknown Rx mg tablet Allergies Allergy/AdvReac Type Severity Reaction Status Date / Time Sulfa (Sulfonamide Allergy Unknown Verified 01/15/21 14:43 Antibiotics) PFSH Acute PFSH: Medical History No pertinent past medical history neghx: htn,dm,thyroid,dvt/pe PCP: none Surgical History Hx of dilation and curettage [id number]: Performed in [place], [place] due to miscarriage. Family History Grandfather Hypertension Paternal Diabetes Paternal Heart disease Paternal Stroke Paternal Grandmother Uterine cancer Parternal--dx age 30's Ovarian cancer Paternal--dx age 30's Denies family history of Colon cancer Hypercholesteremia Breast cancer Thyroid disease Female Reproductive History: Date of last menstrual period: 12/11/19 : 9 Vitals/I&O/Wt Last Vital Signs Temp 97.8 F 07/22/21 18:32 Pulse 110 H 07/22/21 18:32 Resp 18 07/22/21 18:57 BP 120/74 07/22/21 18:32 Pulse Ox 100 07/22/21 18:32 Weight last 48 hrs Weight 120 lb Physical Exam Narrative: EXAM NARRATIVE: The patient is lying comfortable in bed. Const: COMMON NORMALS: no acute distress, average body habitus, patient oriented x3, no limitations, healthy appearing, alert and well nourished GENERAL APPEARANCE: cooperative, comfortable, well kempt and well developed ORIENTATION/CONSCIOUSNESS: Yes awake, Yes oriented to person, Yes oriented to place and Yes oriented to time Resp: COMMON NORMALS: normal respiratory effort EFFORT & INSPECTION: Yes able to speak in complete sentences GI: COMMON NORMALS: Soft to palpation and non-tender PALPATION: Yes Soft to palpation : COMMON NORMALS: Yes normal external appearance and Yes normal appearance of the vagina BIMANUAL EXAM - VAGINA & UTERUS: Yes enlarged (cervix dilated to 4 cm. Clot present in uterus) and Yes other (patient asked to push and about 500 ml of clot expressed.) Extremity: COMMON NORMALS: no calf tenderness Neuro: COMMON NORMALS: patient oriented x3 SENSORIUM/ORIENTATION: Yes alert, Yes oriented to person, Yes oriented to place and Yes oriented to time Psych: APPEARANCE: Yes grossly normal and Yes well kempt ATTITUDE: Yes calm and Yes engaged ACTIVITY/MOTOR BEHAVIOR: Yes appropriate eye contact Data : 07/22/21 19:30 A&P Assessment and plan (1) SAB (spontaneous ): spontaneous of 280 g fetus retained placenta after cord pulled off cytotec placed rectally pitocin started. if placenta doesn't deliver, plan D&C 1 unit of blood to be infused due to blood loss. Status: Acute Consult Attestations Time Spent in Patient Care: 16 - 35 minutes (>than 50% of time spent in counselling and/or direct pt care on unit). Coding Level of Care Code Acute Edi Coordinator for noemy Lay Diagnoses SAB (spontaneous ) O03.9
[2021-07-22] MEDS: LORazepam 2 mg/mL INJ 1 mL 0.5 MG IVP (22:27)
[2021-07-22] MEDS: HYDROmorphone 1 mg/mL INJ 1 mL IVP (22:27)
== END 2021-07-22 23:00 | disposition home or self-care (01) ==
PROVIDERS: Nurse Practitioner Family; Emergency Provider Emergency Medicine
DX: O03.9 Complete or unspecified spontaneous abortion without complication (principal)
CPT/HCPCS: 36430; 85014; 85018; 85025; 86850; 86900; 86920; 96374; 96375; 99284; E0352; J1170; J2060; J2270; J2405; J3010; P9016

== ENCOUNTER 2022-03-22 09:38 | Day surgery (SDC) | payer MEDICAID, SELFPAY ==
[2022-03-21 11:23] VITALS: BMI 20.6
[2022-03-22] VITALS (10 sets, daily range): BP systolic 90–125; BP diastolic 57–73; PULSE 55–75; RESP 12–22; TEMP 36.3–36.7; O2SAT 98–100
[2022-03-22] MEDS: sodium chloride 0.9% 1,000 ML 30 ML IV (10:19)
[2022-03-22] MEDS: phenazopyridine 100 mg Tablet 200 MG PO (10:22)
[2022-03-22] MEDS: acetaminophen 1,000 MG/100 ML PIGGYBACK 400 MG IV (10:22)
[2022-03-22] MEDS: gabapentin 300 mg Capsule PO (10:22)
[2022-03-22] MEDS: CELEcoxib 200 mg Capsule 400 MG PO (10:22)
--- NOTE | 2022-03-22 10:28 | ANES.PREANE2 ---
Pre-Anesthetic Assessment Height/Weight: Height 1.57 m Weight 51.256 kg Temp Pulse Resp BP Pulse Ox O2 Del Method 98.0 F 64 18 125/70 99 03/22/22 09:57 03/22/22 09:57 03/22/22 09:57 03/22/22 09:57 03/22/22 09:57 03/22/22 09:57 Preop Diagnosis: desires permanent sterilization Operation Date: 03/22/22 11:20 Proposed Procedures p Laparoscopic Bilateral Salpingectomy Z30.2,72226.(Bilateral) - Helen Matute MD Familial anesthetic complications: Patient had a D & C years ago that was supposed to be 45 min and it ended up being 4 hrs and she was told she Had a little trouble back there. She remembers her ETT being removed and described some blood present at or her oral cavity. She described burning sensations as she fell asleep. At first she said that her heart stopped during the procedure, but they did no chest compressions or defibrillations and she was sent home the same night. She has had to have blood transfusions after each of her labor and deliveries d/t gestional thrombocytopenia. She describes having had dental work where she was put under and had no issues with anesthesia. Suspect patient required unplanned intubation d/t intolerance of MAC and/or unexpectedly prolonged procedure during her D&C. Was Beta Nicholas taken within 24 hours: N/A Was Clonidine taken within 24 hours: N/A Last intake: Intake Last Liquid Date 03/21/22 Last Liquid Time 23:00 Last Solid Date 03/21/22 Last Solid Time 18:00 Social Tobacco and No alcohol Exam alert, oriented x 3, clear to auscultation bilaterally and regular rate & rhythm Airway Mallampati: Class I Dentition: chipped Pulmonary Asthma alelrgies Anesthetic Plan ASA status: 2 Anesthesia: General Risk of > 500 ml blood loss (7ml/kg in children): No Medications/Allergies Home Medications Medication Instructions Recorded Confirmed Last Taken Type albuterol sulfate 90 mcg/actuation 2 inh inhalation Q6H PRN shortness 10/14/20 03/21/22 Unknown Rx aerosol inhaler of breath or wheezing #8.5 grams cetirizine 10 mg tablet (Zyrtec) 10 mg PO PRN PRN allergies 10/14/20 03/22/22 10/14/20 07:00 History epinephrine 0.3 mg/0.3 mL 0.3 mg (0.3 mL) IM Q10M PRN 10/14/20 03/21/22 Unknown Rx injection, auto-injector (EpiPen hypersensitivity reaction #2 ea 2-Bimal) norethindrone (contraceptive) 0.35 0.35 mg PO DAILY #84 tabs 12/20/21 03/22/22 03/22/22 Rx mg tablet Allergies Allergy/AdvReac Type Severity Reaction Status Date / Time cinnamon Allergy ALGY-Swell Verified 03/21/22 11:21 Lip/Tongue/Throat Sulfa (Sulfonamide Allergy Unknown Verified 03/21/22 11:20 Antibiotics) Current Medications Generic Name Dose Route Start Last Admin Trade Name Freq PRN Reason Stop Dose Admin Sodium Chloride 1,000 mls @ 30 mls/hr 03/22/22 10:00 03/22/22 10:19 Sodium Chloride 0.9% IV 03/23/22 09:59 30 mls/hr .Q24H RADHA Administration PFSH Anesthesia Medical History No pertinent past medical history neghx: htn,dm,thyroid,dvt/pe PCP: none Surgical History Hx of dilation and curettage [id number]: Performed in [place], [place] due to miscarriage. Family History Grandfather Hypertension Paternal Diabetes Paternal Heart disease Paternal Stroke Paternal Grandmother Uterine cancer Parternal--dx age 30's Ovarian cancer Paternal--dx age 30's Father Prostate cancer dx age 61 Denies family history of Colon cancer Hypercholesteremia Breast cancer Thyroid disease Social History Smoking and tobacco status: current every day smoker (0.25-0.5 PPD) Female Reproductive History Date of last menstrual period: 12/11/19 Data Anesthesia Cardiac Studies: No Data to Display
[2022-03-22 10:53] LABS: OR HCG Qualitative Urine Negative (Negative)
--- NOTE | 2022-03-22 12:16 | W.PM.OPSUD ---
Surgery/Procedure H&P Update DATE OF PROCEDURE: March 22, 2022 DATE H&P PERFORMED: 03/18/22 H&P UPDATE INFORMATION: I have reviewed H&P completed within last 30 days, I have examined patient prior to procedure and No changes to prior documentation PREOP DIAGNOSIS: desires permanent sterilization PLANNED PROCEDURE: Operation Date: 03/22/22 11:20 Proposed Procedures p Laparoscopic Bilateral Salpingectomy Z30.2,03965.(Bilateral) - Helen Matute MD Related Problem List Diagnoses (1) Sterilization consult:
[2022-03-22] MEDS: ceFAZolin 2,000 MG in sodium chloride 0.9% (plus) 50 ML 100 MG IV (12:18)
--- NOTE | 2022-03-22 13:29 | P.OP_ITS ---
Operative Report Date of procedure: March 22, 2022 Pre-op diagnosis: Preop Diagnosis desires permanent sterilization Post-op diagnosis: same Post-op findings: normal appearing uterus, tubes and ovaries Procedure done: lap. bilateral salpingectomy Specimens removed/disposition: bilateral fallopian tubes to pathology Surgeon: Helen Matute Anesthesia: General Estimated blood loss (mL): 10 IV fluids (mL): 1,000 Urine output (mL): 50 Complications: none Condition: stable Disposition: PACU Procedure: The patient was taken to the operating room where general anesthesia was administered and found to be adequate. She was prepped and draped in the normal sterile fashion in the dorsal lithotomy position in [facility]. A Corey catheter was placed. A weighted speculum was placed into the vagina and the anterior lip of the cervix grasped with a single-tooth tenaculum. A ZGiraffe Friend uterine manipulator was placed. The gloves were changed and attention was turned to the laparoscopic portion of the case. A 5 mm infraumbilical incision was made. The 5 mm trocar was placed using the easy view trocar. Intra-abdominal placement was confirmed and CO2 gas was used to insufflate the abdomen. Using direct visualization and illumination of the abdominal wall, two 5 mm incisions were made low and lateral. One on the left and one on the right. The 5mm trochars were then placed under direct visualization. Using the uterine manipulator and the grasper, the fallopian tubes were identified. Using the laparoscopic cautery, the fallopian tube was clamped cauterized and cut. First on the right, then on the left. There was excellent hemostasis post removal of the bilateral tubes. Pictures were taken. All instruments were removed. The abdomen was desufflated. The incisions were closed with 4-0 Vicryl. 10 ml of 1/2% bupivicaine was used around the incisions. The patient tolerated the procedure well. Sponge lap and needle counts were correct x3. She was taken to the recovery room in stable condition.
--- NOTE | 2022-03-22 13:42 | PM.DCS ---
Discharge Providers Date of Admission: 03/22/22 Date of Discharge: March 22, 2022 Attending Provider at Discharge: Helen Matute MD Diagnoses at Discharge Discharge Diagnosis (1) Sterilization consult: Status: Acute Reason for Visit Reason for Visit: encounter for sterilization Hospital Course Hospital Course The patient was admitted for surgery. She did well postoperatively and was ready for discharge after recovery. Physical Exam Urinary Catheter Management: Corey: Cath Placed During This Visit: yes, but has since been removed by the nurse Urinary Catheter Date of Insertion: 03/22/22 Urinary Catheter Time of Insertion: 12:43 Date Urinary Catheter Removed: 03/22/22 Time Urinary Catheter Discontinued: 13:13 Discharge Data Studies Completed and Pending Pending at discharge Category Date Time Status ES surgery / GI images Routine Exams 03/22/22 10:26 Taken Urine Culture Routine Lab 03/22/22 12:46 Received Pathology: Surgical [PTH] Routine Pth 03/22/22 13:29 Ordered Laboratory Results Urine HCG, Qual Negative (Negative) 03/22/22 10:47 Blood Type O Positive 03/22/22 10:04 Rho(D) Type Positive 03/22/22 10:04 Antibody Screen Negative 03/22/22 10:04 Vitals Last Vital Signs Temp 97.3 F L 03/22/22 13:27 Pulse 56 L 03/22/22 13:27 Resp 12 03/22/22 13:27 BP 107/71 03/22/22 13:27 Pulse Ox 100 03/22/22 13:27 O2 Del Method 03/22/22 13:27 O2 Flow Rate 10 03/22/22 13:27 Discharge Plan Discharge Patient Disposition: Home Condition: Stable Prescriptions: New hydrocodone-acetaminophen 5-325 mg tablet 1 tab PO Q4H PRN (Reason: pain) Qty: 30 0RF docusate sodium 100 mg capsule 100 mg PO TID Qty: 60 0RF ibuprofen 800 mg tablet 800 mg PO TID Qty: 30 0RF Continued norethindrone (contraceptive) 0.35 mg tablet 0.35 mg PO DAILY Qty: 84 0RF cetirizine [Zyrtec] 10 mg Tablet 10 mg PO PRN PRN (Reason: allergies) epinephrine [EpiPen 2-Bimal] 0.3 mg/0.3 mL auto-injector 0.3 mg IM Q10M PRN (Reason: hypersensitivity reaction) Qty: 2 0RF Rx Instructions: for 2 doses albuterol sulfate 90 mcg/actuation HFA aerosol inhaler 2 inh inhalation Q6H PRN (Reason: shortness of breath or wheezing) Qty: 8.5 0RF Discharge Orders: Discharge Order (Routine); Ordered 03/22/22 Ordered By: Helen Matute Discharge Attestations Time Spent in Discharge Care*: less than 30 min Quality Metrics Clinical Quality Measures [ No reported AMI, CVA or VTE this stay] Coding Level of Care Code Acute Chg FW DC note Diagnoses Sterilization consult Z30.
--- NOTE | 2022-03-22 14:49 | ANE.PACU2 ---
Inpatient post-anesthesia follow up: Airway intact: Yes Vital signs: Temperature 98.0 F Pulse Rate 61 Respiratory Rate 18 Blood Pressure 92/63 Pulse Oximetry 99 Oxygen Delivery Me thod Room Air Oxygen Flow Rate 10 Fraction of Inspir ed Oxygen Hydration adequate: Yes Nausea and vomiting: No Pain level: 1 Mental status: Baseline
== END 2022-03-22 14:23 | disposition home or self-care (01) ==
PROVIDERS: Anesthesiology; Visit Provider Obstetrics & Gynecology
PROC: (CPT 58661; principal; 2022-03-22 11:20)
DX: Z30.2 Encounter for sterilization (principal); F17.210 Nicotine dependence, cigarettes, uncomplicated
CPT/HCPCS: 58661; 36592; 84703; 86850; 86900; 87086; 88302; J1100; J1200; J2250; J2370; J2405; J2704; J3010; J3490; J7030

== ENCOUNTER → 2022-12-07 13:40 | Outpatient (BNVA) | payer BC, SELFPAY | PROVIDERS: Visit Provider Nurse Practitioner Family | DX: R30.0 Dysuria (principal); N30.01 Acute cystitis with hematuria | CPT/HCPCS: 81000; 87077; 87086; 87184 ==

== ENCOUNTER 2025-03-30 13:57 | Emergency (ER) | payer OTHER, SELFPAY ==
[2025-03-30 14:09] VITALS: BP 91/65; PULSE 94; RESP 16; TEMP 36.8; O2SAT 95; BMI 20.5
--- NOTE | 2025-03-30 14:20 | ED_ITS ---
HPI - Female Genitourinary 2 General: Chief complaint: Urogenital-Female Stated complaint: n/v peeing blood since Monday Time Seen by Provider: 03/30/25 14:15 Source: patient Mode of arrival: ambulatory Limitations: no limitations History of Present Illness: 39-year-old female states she has been h aving burning urination since Monday. She states that feels like she is urinating acid she states has had some slight hematuria as well. States she has had some vomiting along with some lower abdominal pain she rates her abdominal pain a 2 out of 10. States she has had urinary tract infections in the past she denies any flank pain denies any worse improved after Related Data Previous Rx's ?Medication ?Instructions ?Recorded cephalexin 500 mg capsule 500 mg PO TID 7 days #21 cap s 03/30/25 ondansetron 4 mg disintegrating 4 mg PO Q6H PRN nausea and 03/30/25 tablet vomiting #14 tabs Allergies Allergy/AdvReac Type Severity Reaction Status Date / Time cinnamon Allergy ALGY-Swell Verified 02/17/25 07:41 Lip/Tongue/Throat Sulfa (Sulfonamide Allergy Unknown Verified 02/17/25 07:41 Antibiotics) Review of Systems 2 : Reports: dysuria PFSH ED 2 PFSH: Medical History Influenza-like symptoms Sterilization consult No pertinent past medical history neghx: htn,dm,thyroid,dvt/pe PCP: none Surgical History Hx of dilation and curettage [id number]: Performed in [place], [place] due to miscarriage. Family History Grandfather Hypertension Paternal Diabetes Paternal Heart disease Paternal Stroke Paternal Grandmother Uterine cancer Parternal--dx age 30's Ovarian cancer Paternal--dx age 30's Father Prostate cancer dx age 61 Denies family history of Colon cancer Hypercholesteremia Breast cancer Thyroid disease Social History Smoking and tobacco/nicotine status: never used tobacco/nicotine Physical Exam 2 Const: COMMON NORMALS: no acute distress, patient oriented x3 and healthy appearing HENMT: COMMON NORMALS: normocephalic and atraumatic HEAD & SCALP: n ormocephalic and atraumatic Neck/C-Spine: COMMON NORMALS: full ROM and supple Chest: COMMONS NORMALS: normal inspection of the chest and normal palpation of entire chest wall Resp: COMMON NORMALS: normal respiratory effort, No retractions, No use of accessory muscles and clear to auscultation bilaterally AUSCULTATION: clear to auscultation bilaterally Cardio: COMMON NORMALS: regular rate, regular rhythm and No murmurs present (Cardio) RATE: regular rate RHYTHM: regular rhythm GI: COMMON NORMALS: Normal to inspection, nondistended, normoactive bowel sounds present, Soft to palpation, non-tender and no masses PALPATION: Yes Soft to palpation Extremity: COMMON NORMALS: normal to inspection and full ROM Neuro: COMMON NORMALS: patient oriented x3, moves all extremities and no focal motor deficits Psych: COMMON NORMALS: mental status grossly normal, Normal thought process present and cooperative THOUGHT PROCESS: Normal thought process present Skin: COMMON NORMALS: no rashes or lesions noted and no wounds GENERAL SKIN EXAM: no rashes or lesions noted Course 2 Vital Signs: Vital signs: Vital Signs Temperature 98.2 F 03/30/25 14:09 Pulse Rate 75 03/30/25 16:00 Respiratory Rate 16 03/30/25 14:09 Blood Pressure 89/58 03/30/25 16:00 Pulse Oximetry 98 03/30/25 16:00 Oxygen Delivery Me thod Room Air 03/30/25 16:00 MDM - Female Medical Decision Making Patient presents here with dysuria urinalysis is consistent with acute cystitis along with her symptoms with dysuria. She has no flank pain no abdominal tenderness on exam she has no signs of pyelonephritis or kidney stone. Her white count electrolytes here are normal no signs of sepsis she felt improved here after fluids and morphine and Zofran. Did give her IV Rocephin as well will prescribe her Keflex for home along with Zofran. She is to follow-up with her PCP in 2 to 4 days. I did review her labs and her urinalysis with her and informed her if she starts having fever vomiting or any worsening pain she is to return immediately she understands and agrees to plan. Medical Records I reviewed the patient's medical records. Lab Data I reviewed the patient's lab results. 10/05/25 14:40 03/30/25 14:40 Laboratory Results WBC 10.54 10^3/uL (3.29-11.43) 03/30/25 14:40 RBC 4.40 10^6/uL (3.85-5.65) 03/30/25 14:40 Hgb 11.40 g/dL (11.27-16.99) 03/30/25 14:40 Hct 35.8 % (36-47) L 03/30/25 14:40 MCV 81.4 fl (85-98) L 03/30/25 14:40 MCH 25.9 pg (27-33) L 03/30/25 14:40 MCHC 31.8 g/dL (30-55) 03/30/25 14:40 RDW 14.3 % (12.1-15.1) 03/30/25 14:40 Plt Count 196 10^3/cmm (157-399) 03/30/25 14:40 MPV 10.5 fL (7.4-10.4) H 03/30/25 14:40 Neut % (Auto) 74.3 % 03/30/25 14:40 Lymph % (Auto) 12.9 % 03/30/25 14:40 [place] % (Auto) 9.6 % 03/30/25 14:40 Eos % (Auto) 2.3 % 03/30/25 14:40 Baso % (Auto) 0.7 % 03/30/25 14:40 Neut # (Auto) 7.84 10^3/uL (1.8-7.7) H 03/30/25 14:40 Lymph # (Auto) 1.4 10^3/uL (0.8-4.8) 03/30/25 14:40 [place] # (Auto) 1.0 10^3/uL (0.2-0.9) H 03/30/25 14:40 Eos # (Auto) 0.2 10^3/uL (0.0-0.8) 03/30/25 14:40 Baso # (Auto) 0.1 10^3/uL (0.0-0.1) 03/30/25 14:40 Nucleated RBC % (auto) 0 % 03/30/25 14:40 Nucleated RBCs # 0.0 /100WBC 03/30/25 14:40 Sodium 136 mmol/L (136-145) 03/30/25 14:40 Potassium 3.7 mmol/L (3.5-5.1) 03/30/25 14:40 Chloride 102 mmol/L (98-107) 03/30/25 14:40 Carbon Dioxide 22 mmol/L (22-29) 03/30/25 14:40 Anion Gap 15.7 (5-19) 03/30/25 14:40 BUN 7 mg/dL (6-20) 03/30/25 14:40 Creatinine 1.0 mg/dL (0.5-0.9) H 03/30/25 14:40 GFR Calculation 61.1 mL/min (90-130) L 03/30/25 14:40 Glucose 96 mg/dL (65-115) 03/30/25 14:40 Calculated Osmolality 280 mOsm/kg (285-295) L 03/30/25 14:40 Calcium 8.8 mg/dL (8.5-10.5) 03/30/25 14:40 Total Bilirubin 0.2 mg/dL (0.15-1.2) 03/30/25 14:40 AST 17 U/L (0-32) 03/30/25 14:40 ALT 13 U/L (0-33) 03/30/25 14:40 Alkaline Phosphatase 48 U/L (35-105) 03/30/25 14:40 Total Protein 6.7 g/dL (6.6-8.7) 03/30/25 14:40 Albumin 4.1 g/dL (3.5-5.2) 03/30/25 14:40 Globulin 2.6 g/dL (1.3-4.6) 03/30/25 14:40 Lipase 24 U/L (13-60) 03/30/25 14:40 Urine Color [place] (Yellow) A 03/30/25 15:09 Urine Appearance Clear (CLEAR) 03/30/25 15:09 Urine pH 6 (5-7) 03/30/25 15:09 Ur Specific [place] 1.015 (1.005-1.030) 03/30/25 15:09 Urine Protein 3+ (Negative) H 03/30/25 15:09 Urine Glucose (UA) Norm (Normal) 03/30/25 15:09 Urine Ketones Negative (Negative) 03/30/25 15:09 Urine Blood 3+ (Negative) H 03/30/25 15:09 Urine Nitrate Positive (Negative) A 03/30/25 15:09 Urine Bilirubin 2+ (Negative) H 03/30/25 15:09 Urine Urobilinogen 8 mg/dL (Negative) H 03/30/25 15:09 Ur Leukocyte Esterase 1+ (Negative) H 03/30/25 15:09 Urine RBC 0-4 /hpf (0-2) H 03/30/25 15:09 Urine WBC 25-40 /hpf (0-5) H 03/30/25 15:09 Ur Squamous Epith Cells 5-10 /hpf (0-5) H 03/30/25 15:09 Amorphous Sediment Not Reportable 03/30/25 15:09 Urine Bacteria Trace /hpf (NONE) 03/30/25 15:09 Hyaline Casts 0-4 /lpf H 03/30/25 15:09 Urine Mucus Trace /hpf 03/30/25 15:09 No radiology studies performed this visit Discharge Plan Discharge Patient Disposition: Home Clinical Impression: Urinary tract infection Condition: Stable Prescriptions: New cephalexin 500 mg capsule 500 mg PO TID 7 Days Qty: 21 0RF ondansetron 4 mg tablet,disintegrating 4 mg PO Q6H PRN (Reason: nausea and vomiting) Qty: 14 0RF Discharge Orders: Discharge ED (Routine); Ordered 03/30/25 Ordered By: Kayleigh Madison Discharge Diet: Advance as tolerated Discharge Activity: Resume usual activity Patient Instructions: Urinary Tract Infection in Women (ED) Print Language: [place] Coding Level of Care Code ED Rag Grader for Barbara Lay
[2025-03-30] MEDS: ondansetron 2 mg/ML SDV 2 mL 4 MG IVP (14:39)
[2025-03-30 14:46] LABS: Hematocrit 35.8 % (36-47); Hemoglobin 11.40 g/dL (11.27-16.99); Mean Corpuscular HGB Conc 31.8 g/dL (30-55); Mean Corpuscular Hemoglobin 25.9 pg (27-33); Mean Corpuscular Volume 81.4 fl (85-98); Nucleated Red Blood Cells % 0 %; Platelet Count 196 10^3/cmm (157-399); Red Blood Count 4.40 10^6/uL (3.85-5.65); White Blood Count 10.54 10^3/uL (3.29-11.43)
[2025-03-30 15:00] VITALS: BP 90/64; PULSE 90; O2SAT 92
[2025-03-30 15:07] LABS: Alanine Aminotransferase 13 U/L (0-33); Albumin Level 4.1 g/dL (3.5-5.2); Alkaline Phosphatase 48 U/L (35-105); Anion Gap 15.7 (5-19); Aspartate Amino Transferase 17 U/L (0-32); Blood Urea Nitrogen 7 mg/dL (6-20); Calcium 8.8 mg/dL (8.5-10.5); Carbon Dioxide 22 mmol/L (22-29); Chloride 102 mmol/L (98-107); Creatinine Clr Calc Pharmacy 58.8826; Globulin 2.6 g/dL (1.3-4.6); Glucose 96 mg/dL (65-115); Lipase 24 U/L (13-60); Osmolality Calculated 280 mOsm/kg (285-295); Potassium 3.7 mmol/L (3.5-5.1); Sodium 136 mmol/L (136-145); Total Protein 6.7 g/dL (6.6-8.7)
[2025-03-30 15:25] LABS: Add Urine Microscopic? YES; Glucose Urine UA Norm (Normal); Nitrate Urine Positive (Negative); Specific Gravity, Urine 1.015 (1.005-1.030); UA Manual Slide Review YES
[2025-03-30 15:30] VITALS: BP 98/72; PULSE 89; O2SAT 97
[2025-03-30] MEDS: cefTRIAXone 1,000 mg SDV 1000 MG IVP (15:41)
[2025-03-30 16:00] VITALS: BP 89/58; PULSE 75; O2SAT 98
--- NOTE | 2025-03-30 16:22 | PC.NURSE ---
Pt states her b/p usually runs low. currently 82/58. Pt voices this is normal for her.
[2025-03-30 16:30] VITALS: BP 101/64; PULSE 74; O2SAT 97
[2025-03-30 16:55] VITALS: BP 101/64; PULSE 70; O2SAT 98
== END 2025-03-30 16:56 | disposition home or self-care (01) ==
PROVIDERS: Emergency Provider Emergency Medicine
DX: N39.0 Urinary tract infection, site not specified (principal)
CPT/HCPCS: 36415; 80053; 81001; 83690; 85025; 87086; 96361; 96374; 96375; 99284; J0696; J1885; J2405; J7030